=== PATIENT | female | born 1985 | race Two or more races ===

== ENCOUNTER 2017-10-28 20:46 | Emergency (ER) | payer MEDICAID ==
[~2017-10-28] VITALS: Ht 167.6 cm; Wt 68.0 kg
[2017-10-28] MEDS ORDERED: TDAP DIPH,PERTUSS,TET VAC/PF 0.5 ML DISP.SYRIN IM ONE ×2 (22:00→22:14)
[2017-10-28] MEDS ORDERED: LIDOCAINE HCL 1% 20 ML VIAL IJ ONE (22:00)
--- NOTE | 2017-10-28 22:09 | NUR ---
PT . TDAP OK PER MD ORDOÑEZ.
[2017-10-28] MEDS ORDERED: NEOMY/BACITRA/POLYMYXIN B OINT UD PACKET TP ONE ×2 (22:38→22:45)
--- NOTE | 2017-10-28 22:44 | NUR ---
Patient discharged to home in stable conditon with taking patient home. Written and verbal after care instructions given. Patient verbalizes understanding of instructions. walked out of ER with steady gait
[2017-10-28 22:46] VITALS: BP 115/70
== END 2017-10-28 22:47 | disposition home or self-care (01) ==
LOC: ER 20:51
DX: O26.893 Other specified pregnancy related conditions, third trimester (principal); S61.011A Laceration without foreign body of right thumb without damage to nail, initial encounter; Z88.5 Allergy status to narcotic agent; Z3A.31 31 weeks gestation of pregnancy; W26.8XXA Contact with other sharp object(s), not elsewhere classified, initial encounter; Y93.89 Activity, other specified; Y92.89 Other specified places as the place of occurrence of the external cause; Y99.8 Other external cause status
CPT/HCPCS: 90715; A4217; A4663; J3490